=== PATIENT | female | born 1990 | race Caucasian/White ===

== ENCOUNTER 2016-06-22 09:54 | Emergency (ER) | payer OTHER ==
[~2016-06-22 09:54] MED LIST: CYCL5TAB PO; HYDR-2666 PO; NAPR500T PO; ONDA4TAB10 SL
--- NOTE | 2016-06-22 10:21 | ED.ADGEN ---
Past History Past Medical History: No Pertinent History Past Surgical History: No Surgical History Smoking: Non-smoker Alcohol Use: None Drug Use: None Adult General Chief Complaint Chief Complaint abdominal cramping HPI HPI Patient is a 26 year old female who presents with abdominal cramping. Patient is with , 18 weeks 2 days by ultrasound. Presents with abdominal cramping since yesterday evening, pain from her back and throughout her abdomen , most prominent in her lower abdomen. She reports mild nausea, no vomiting. No vaginal discharge or bleeding. She's not attempted any symptom controlling medication, she attempted to call her OB doctor, Dr. oDminique, the call was not immediately returned. She plans to deliver OPR. She denies any fevers, reports a cough, no diarrhea. She had 1 prior miscarriage at 2 months. Review of Systems Review of Systems Constitutional: Denies fever or chills [] Eyes: Denies change in visual acuity, redness, or eye pain [] HENT: Denies nasal congestion or sore throat [] Respiratory: reports cough, denies shortness of breath [] Cardiovascular: denies chest pain GI: Denies bloody stools or diarrhea [] : Denies dysuria or hematuria [] Musculoskeletal: Denies back pain or joint pain [] Integument: Denies rash or skin lesions [] Neurologic: Denies headache, focal weakness or sensory changes [] Current Medications Current Medications Current Medications Medications (Trade) Dose Ordered Sig/Tanvi Start Time Stop Time Status Last Admin Dose Admin Acetaminophen (Tylenol) 1,000 mg 1X ONCE 06/22/16 10:30 06/22/16 10:31 DC 06/22/16 10:39 1,000 MG Allergies Allergies Allergies Coded Allergies Type Severity Reaction Last Updated Verified No Known Drug Allergies 11/10/13 No Physical Exam Physical Exam Constitutional: Well developed, well nourished, no acute distress, non-toxic appearance. [] HENT: Normocephalic, atraumatic, bilateral external ears normal, oropharynx moist, no oral exudates, nose normal. [] Eyes: PERRLA, EOMI, conjunctiva normal, no discharge. [] Neck: Normal range of motion, no tenderness, supple, no stridor. [] Cardiovascular:Heart rate 90 with regular rhythm, no murmur [] Lungs & Thorax: Bilateral breath sounds clear to auscultation , no wheeze or crackles Abdomen: Bowel sounds normal, soft, diffuse lower abdomen mild ttp without guarding or peritoneal signs, no focal ttp, gravid to below umbilicus pelvic: no vaginal bleeding or significant discharge, no CMT, fingertip cervix. Skin: Warm, dry, no erythema, no rash. [] Back: No tenderness, no CVA tenderness. [] Extremities: No tenderness, no cyanosis, no clubbing, ROM intact, no edema. [] Neurologic: Alert and oriented X 3, normal motor function, normal sensory function, no focal deficits noted. [] Current Patient Data Vital Signs Vital Signs Date Time Temp Pulse Resp B/P Pulse Ox O2 Delivery O2 Flow Rate FiO2 06/22/16 10:40 96 18 113/64 99 Room Air 06/22/16 10:02 97.7 Lab Results Laboratory Tests Test 06/22/16 10:04 Urine Collection Type Unknown Urine Color Yellow Urine Clarity Clear Urine pH 7.5 Urine Specific [place] 1.015 Urine Protein Neg (NEG-TRACE) Urine Glucose (UA) Negmg/dL (NEG) Urine Ketones (Stick) Negmg/dL (NEG) Urine Blood Small (NEG) Urine Nitrite Neg (NEG) Urine Bilirubin Neg (NEG) Urine Urobilinogen Dipstick 0.2mg/dL (0.2 mg/dL) Urine Leukocyte Esterase Neg (NEG) Urine RBC 3-5/HPF (0-2) Urine WBC 0/HPF (0-4) Urine Squamous Epithelial Cells Mod/LPF Urine Bacteria Few/HPF (0-FEW) Urine Mucus Slight/LPF Urine Sperm Present/HPF EKG EKG [] Radiology/Procedures Radiology/Procedures BSUS performed by me shows both fetus, both with FHTs and moving[] Course & Med Decision Making Course & Med Decision Making Pertinent Labs and Imaging studies reviewed. (See chart for details) dipstick performed, trace blood. UA micro ordered. spec/bimanual exam performed. Pt given tylenol po. HR initially elevated, back to 90 on my exam. No UTI. Pt has sperm in ua micro, cramping could be from orgasm/intercourse. Pt's symptoms appear mild at this time and do not appear as contraction or any signs of active labor, nor does she has signs of surgical abdomen. Recommend she f/u closely with OB doctor and return if worsening symptoms or new concerning symptoms. Final Impression Final Impression abdominal pain in .[] Problems: Dragon Disclaimer Dragon Disclaimer This electronic medical record was generated, in whole or in part, using a voice recognition dictation system. ESTEPHANIE HENSON MD Jun 22, 2016 10:21
[2016-06-22] MEDS ORDERED: ACETAMINOPHEN 500 MG TABLET PO ONE (10:30)
[2016-06-22 10:34] LABS: BACTERIA,URINE FEW /HPF (0-FEW); BILIRUBIN,URINE NEG (NEG); CLARITY,URINE CLEAR; COLOR,URINE YELLOW; GLUCOSE,URINE NEG (NEG); NITRITE,URINE NEG (NEG); SPERM,URINE PRESENT /HPF; SQUAMOUS EPITHELIAL CELL,UR MOD /LPF; UROBILINOGEN,URINE 0.2 mg/dL (0.2 mg/dL); WBC,URINE 0 /HPF (0-4)
[2016-06-22 10:40] VITALS: BP 113/64
== END 2016-06-22 10:52 | disposition home or self-care (01) ==
LOC: ER 09:54
DX: O26.892 Other specified pregnancy related conditions, second trimester (principal); R10.30 Lower abdominal pain, unspecified; R11.0 Nausea; Z3A.18 18 weeks gestation of pregnancy
CPT/HCPCS: 81001; 99284-25

== ENCOUNTER 2018-08-23 16:09 | Emergency (ER) | payer OTHER ==
[~2018-08-23] VITALS: Ht 165.1 cm; Wt 83.2 kg
[2018-08-23 16:09] VITALS: BP 140/94
[~2018-08-23 16:09] MED LIST changes: +HYDR-2155 PO; -HYDR-2666 PO; +NAPR-683 PO; -NAPR500T PO
--- NOTE | 2018-08-23 16:40 | RAD ---
3 views left foot dated 08/23/2018. No comparison available. CLINICAL INDICATION: Pain after injury. Swelling. FINDINGS: 3 views left foot show normal bony alignment. No displaced fracture. No acute osseous or articular abnormality. IMPRESSION: No acute findings. Electronically signed by: Álvaro Collins MD (08/23/2018 4:37 PM) [facility] [place]
[2018-08-23] MEDS ORDERED: MELO7.5T29 PO (16:50)
--- NOTE | 2018-08-23 16:50 | PHYS DOC ---
Past History Past Medical History: No Pertinent History Past Surgical History: No Surgical History Smoking: Cigarettes Alcohol Use: Occasionally Drug Use: None Adult General Chief Complaint Chief Complaint: FOOT INJURY PAIN HPI HPI Patient is a 28-year-old female presents complaining of a left foot injury. Last night she fell down several steps after she had been drinking alcohol. She did not strike her head. No loss of consciousness. Increased pain with movement. No home pain medicine has been taken. No radiation of the discomfort. Pain is diffuse around the foot. Pain is severe in intensity.[] Review of Systems Review of Systems Constitutional: Denies fever or chills [] Eyes: Denies change in visual acuity, redness, or eye pain [] HENT: Denies nasal congestion or sore throat [] Respiratory: Denies cough or shortness of breath [] Cardiovascular: No chest pain or palpitations[] GI: Denies abdominal pain, nausea, vomiting, bloody stools or diarrhea [] : Denies dysuria or hematuria [] Musculoskeletal: Denies back pain, see history of present illness[] Integument: Denies rash or skin lesions [] Neurologic: Denies headache, focal weakness or sensory changes [] Endocrine: Denies polyuria or polydipsia [] All other systems were reviewed and found to be within normal limits, except as documented in this note. Allergies Allergies Allergies Coded Allergies Type Severity Reaction Last Updated Verified No Known Drug Allergies 11/10/13 No Physical Exam Physical Exam Constitutional: Well developed, well nourished, no acute distress, non-toxic appearance. [] HENT: Normocephalic, atraumatic, bilateral external ears normal, oropharynx moist, no oral exudates, nose normal. [] Eyes: PERRLA, EOMI, conjunctiva normal, no discharge. [] Neck: Normal range of motion, no tenderness, supple, no stridor. [] Cardiovascular:Heart rate regular rhythm, no murmur [] Lungs & Thorax: Bilateral breath sounds clear to auscultation [] Abdomen: Bowel sounds normal, soft, no tenderness, no masses, no pulsatile masses. [] Skin: Warm, dry, no erythema, no rash. Abrasions on bilateral knees and the dorsum of the left foot [] Back: No tenderness, no CVA tenderness. [] Extremities: Patient's left foot has diffuse tenderness to palpation. There is no bruising. Decreased active range of motion secondary to pain. No ankle or knee tenderness on the left. Patient is distally neurovascularly intact. The other 3 extremities show: No Tenderness, no cyanosis, no clubbing, ROM intact, no edema. [] Neurologic: Alert and oriented X 3, normal motor function, normal sensory function, no focal deficits noted. [] Psychologic: Affect normal, judgement normal, mood normal. [] EKG EKG [] Radiology/Procedures Radiology/Procedures 3 views left foot dated 08/23/2018. No comparison available. CLINICAL INDICATION: Pain after injury. Swelling. FINDINGS: 3 views left foot show normal bony alignment. No displaced fracture. No acute osseous or articular abnormality. IMPRESSION: No acute findings.[] Course & Med Decision Making Course & Med Decision Making Pertinent Labs and Imaging studies reviewed. (See chart for details) ED course: Patient arrived, was placed in bed, and tolerated exam well. She was transferred to and from radiology with any complications. After the return of the imaging findings, these were discussed with the patient voiced understanding. A postoperative shoe was placed for immobilization. She was distally neurovascularly intact after the postop shoe was placed. All questions were answered. She was discharged in improved condition. Medical decision making: There is no evidence of a fracture, dislocation, neurologic, or vascular injury to the foot. No evidence of significant ligamentous or tendinous injury.[] Dragon Disclaimer Dragon Disclaimer This electronic medical record was generated, in whole or in part, using a voice recognition dictation system. Departure Departure: Impression: Primary Impression: Contusion of left foot including toes Disposition: 01 HOME, SELF-CARE Condition: IMPROVED Referrals: PCP,ANA (PCP) Patient Instructions: Crutch Use, Foot Contusion Additional Instructions: Follow-up with your regular doctor in 2 days. If you do not have a regular doctor a list of local clinics will be provided for you. Weight-bear as tolerated with your injured foot. Take the medication as prescribed. Return to the ER if worsening pain or any other concerns. Scripts Meloxicam (MELOXICAM) 7.5 Mg Tablet 7.5 MG PO DAILY for PAIN, #20 TAB Prov: KINGHARVEY LYN 08/23/18 Problem Qualifiers Primary Impression: Contusion of left foot including toes Encounter type: initial encounter Qualified Codes: S90.32XA - Contusion of left foot, initial encounter; S90.122A - Contusion of left lesser toe(s) without damage to nail, initial encounter HARVEY MALIK DO Aug 23, 2018 16:50
[2018-08-23] MEDS ORDERED: IBUPROFEN 600 MG TABLET. PO ONE (16:51)
[2018-08-23] MEDS: IBUPROFEN 600 MG TABLET. PO ONE (16:53)
== END 2018-08-23 16:55 | disposition home or self-care (01) ==
LOC: ER 16:09
DX: S90.32XA Contusion of left foot, initial encounter (principal); S90.122A Contusion of left lesser toe(s) without damage to nail, initial encounter; F17.210 Nicotine dependence, cigarettes, uncomplicated; W10.8XXA Fall (on) (from) other stairs and steps, initial encounter; Y93.89 Activity, other specified; Y92.89 Other specified places as the place of occurrence of the external cause; Y99.8 Other external cause status
CPT/HCPCS: 73630; 99284

== ENCOUNTER 2019-02-27 10:13 | Emergency (ER) | payer SELFPAY ==
[~2019-02-27] VITALS: Ht 165.1 cm; Wt 92.5 kg
[~2019-02-27 10:13] MED LIST changes: +MELO7.5T29 PO
[2019-02-27] MEDS: IV NORMAL SALINE 1,000ML 1,000 ML IV SCH (10:27)
[2019-02-27] MEDS: HYOSCYAMINE 0.125 MG TAB.RAPDIS PO ONE (10:30)
[2019-02-27] MEDS: KETOROLAC 30 MG/ML VIAL. IVP ONE (10:30)
--- NOTE | 2019-02-27 10:35 | PHYS DOC ---
Past History Past Medical History: No Pertinent History Past Surgical History: , Tubal ligation Smoking: Cigarettes Alcohol Use: Occasionally Drug Use: Marijuana Adult General Chief Complaint Chief Complaint: ABDOMINAL PAIN HPI HPI Patient is a 28-year-old female presents with left upper quadrant abdominal pain. This has been present for the past 2 weeks. She reports a bulge in the area. She has also had nausea and vomiting during this time with the last episode of emesis 2-3 days ago. There has also been diarrhea present with the last watery stool being yesterday. No blood in the stool or emesis. No recent travel. No sick contacts. She was scheduled to see a surgeon today about a possible hernia however the surgeon was also primary special education teacher and called into emergency surgery. No significant pain relief with ibuprofen. Last dose of ibuprofen was yesterday. Pain has not migrated. Pain is moderate to severe in intensity.[] Review of Systems Review of Systems Constitutional: Denies fever or chills [] Eyes: Denies change in visual acuity, redness, or eye pain [] HENT: Denies nasal congestion or sore throat [] Respiratory: Denies cough or shortness of breath [] Cardiovascular: No chest pain or palpitations[] GI: See history of present illness[] : Denies dysuria or hematuria [] Musculoskeletal: Denies back pain or joint pain [] Integument: Denies rash or skin lesions [] Neurologic: Denies headache, focal weakness or sensory changes [] Endocrine: Denies polyuria or polydipsia [] All other systems were reviewed and found to be within normal limits, except as documented in this note. Allergies Allergies Allergies Coded Allergies Type Severity Reaction Last Updated Verified No Known Drug Allergies 11/10/13 No Physical Exam Physical Exam Constitutional: Well developed, well nourished, no acute distress, non-toxic appearance. [] HENT: Normocephalic, atraumatic, bilateral external ears normal, oropharynx moist, no oral exudates, nose normal. [] Eyes: PERRLA, EOMI, conjunctiva normal, no discharge. [] Neck: Normal range of motion, no tenderness, supple, no stridor. [] Cardiovascular:Heart rate regular rhythm, no murmur [] Lungs & Thorax: Bilateral breath sounds clear to auscultation [] Abdomen: Bowel sounds normal, soft, tenderness left upper quadrant as well as along the left lower ribs. No hepato-or splenomegaly, able to sit up and lie back without any difficulty, no masses, no pulsatile masses. [] Skin: Warm, dry, no erythema, no rash. [] Back: No tenderness, no CVA tenderness. [] Extremities: No tenderness, no cyanosis, no clubbing, ROM intact, no edema. [] Neurologic: Alert and oriented X 3, normal motor function, normal sensory function, no focal deficits noted. [] Psychologic: Affect normal, judgement normal, mood normal. [] Current Patient Data Vital Signs Vital Signs Date Time Temp Pulse Resp B/P (MAP) Pulse Ox O2 Delivery O2 Flow Rate FiO2 02/27/19 10:21 98.2 120 18 98 Room Air EKG EKG [] Radiology/Procedures Radiology/Procedures PROCEDURE: CT ABD PELV W/ORAL&IV CONTRAST CT ABD PELV W/ORAL IV CONTRAST Indication: Left upper quadrant pain, bulging Technique: Postcontrast CT imaging was performed of the abdomen and pelvis, multiplanar reconstruction images submitted. Oral contrast was also given. One or more of the following individualized dose reduction techniques were utilized for this examination: 1. Automated exposure control 2. Adjustment of the mA and/or kV according to patient size 3. Use of iterative reconstruction technique. Comparison: November 24, 2013 FINDINGS: The entirety of the abdomen and pelvis soft tissues could not be included due to patient's body habitus. There is no significant abnormality of the limited visualized lung bases. There is probable hepatic steatosis. Gallbladder is present without obvious intraluminal abnormality by CT. There is no adrenal nodularity. Both kidneys enhance, no hydronephrosis. No focal abnormality is identified of the spleen, pancreas. Bowel is not significantly dilated. There is no free air. There is trace nonorganized fluid in the dependent left pelvis. There is appearance of degree of mild wall thickening of the ascending and descending colon and also appearance of mild wall enhancement of segments of small bowel in the pelvis. There is a 1.8 cm hypodense lesion of the right adnexa, internal fluid characteristics 13 Hounsfield units. There is a focus of different density of the left adnexa about 1.4 cm, mild peripheral hyperdensity or enhancement with internal density measurements of 22 Hounsfield units. There is mild distention of the urinary bladder. Appendix cannot be clearly identified if still present. IMPRESSION: 1. There is no evidence of bowel obstruction. There is trace nonorganized dependent free fluid in the pelvis. There is appearance of degree of colonic wall thickening as well as mild small bowel enhancement which could be seen with mild enterocolitis in the appropriate clinical setting. Appendix cannot be confidently identified. 2. There is small likely cyst of the right adnexa, also small focus of density of the left adnexa which could be a somewhat complex cyst. 3. There is likely hepatic steatosis.[] Course & Med Decision Making Course & Med Decision Making Pertinent Labs and Imaging studies reviewed. (See chart for details) Emergency department course: Patient arrived, was placed in bed, and tolerated exam well. She was given medicine to help with the discomfort she was transported to and from radiology with any complications. After return of lab and imaging findings, these were discussed with the patient voiced understanding. All questions were answered. She was discharged in improved condition. Medical Decision-making: There is no evidence of obstruction, perforation, significant electrolyte abnormality, nor other surgical pathology at this time. No pancreatitis.[] Dragon Disclaimer Dragon Disclaimer This electronic medical record was generated, in whole or in part, using a voice recognition dictation system. Departure Departure: Impression: Primary Impression: Left upper quadrant abdominal pain of unknown etiology Disposition: 01 HOME, SELF-CARE Condition: IMPROVED Referrals: ANA MARTINEZ (PCP) Patient Instructions: Abdominal Pain Additional Instructions: All up with your regular doctor in 2 days. If you do not have regular doctor list of local clinics will be provided. Return to the emergency department if unable to tolerate liquids, blood in stool or emesis, or any other concerns. Scripts Metoclopramide Hcl (REGLAN) 10 Mg Tablet 10 MG PO QID for nausea and vomiting, #30 TAB Prov: HARVEY MALIK DO 02/27/19 Hyoscyamine Sulfate (LEVSIN) 0.125 Mg Tablet 0.125 MG PO QID for abdominal pain/cramping, #30 TAB Prov: HARVEY MALIK DO 02/27/19 HARVEY MALIK DO Feb 27, 2019 10:35
[2019-02-27 10:58] LABS: CALCIUM 8.4 mg/dL (8.5-10.1); CREATININE 0.7 mg/dL (0.6-1.0); GFR 98.9; POTASSIUM 3.8 mmol/L (3.5-5.1)
[2019-02-27 11:01] LABS: BASO % 0 % (0-3); EOS # 0.1 x10^3/uL (0.0-0.7); EOS % 1 % (0-3); HEMATOCRIT 44.1 % (36.0-47.0); HEMOGLOBIN 15.4 g/dL (12.0-15.5); LYMPH # 2.3 x10^3/uL (1.0-4.8); LYMPH % 21 % (24-48); MEAN CORPUSCULAR HEMOGLOBIN 42 pg (25-35); MEAN CORPUSCULAR HGB CONC 35 g/dL (31-37); MEAN CORPUSCULAR VOLUME 119 fL (79-100); MONO # 0.5 x10^3/uL (0.0-1.1); MONO % 5 % (0-9); NEUT # 7.9 x10^3uL (1.8-7.7); NEUT % 73 % (31-73); PLATELET COUNT 299 x10^3/uL (140-400); RED BLOOD COUNT 3.71 x10^6/uL (3.50-5.40); RED CELL DISTRIBUTION WIDTH 13.3 % (11.5-14.5); WHITE BLOOD COUNT 10.9 x10^3/uL (4.0-11.0)
[2019-02-27 11:04] LABS: ALBUMIN 3.2 g/dL (3.4-5.0); ALBUMIN/GLOBULIN RATIO 0.9 (1.0-1.7); TOTAL BILIRUBIN 0.4 mg/dL (0.2-1.0); TOTAL PROTEIN 6.9 g/dL (6.4-8.2)
[2019-02-27] MEDS ORDERED: IOHEXOL 240 MG/ML 50ML VIAL. ONE (11:20)
[2019-02-27] MEDS ORDERED: CONTRAST GIVEN MC PRN (11:45)
[2019-02-27 11:46] LABS: BACTERIA,URINE FEW /HPF (0-FEW); BILIRUBIN,URINE NEG (NEG); CLARITY,URINE HAZY; COLOR,URINE AMBER; GLUCOSE,URINE NEG (NEG); NITRITE,URINE NEG (NEG); RBC,URINE RARE /HPF (0-2); SQUAMOUS EPITHELIAL CELL,UR MANY /LPF; UROBILINOGEN,URINE 0.2 mg/dL (0.2 mg/dL); WBC,URINE 0 /HPF (0-4)
[2019-02-27] MEDS: IOHEXOL 300 MG/ML 75 ML VIAL. IV ONE (12:16)
[2019-02-27 12:17] LABS: PLT ESTIMATE ADEQUATE (ADEQUATE)
[2019-02-27 12:18] LABS: ANISOCYTOSIS SLIGHT; POLYCHROMASIA SLIGHT
--- NOTE | 2019-02-27 12:38 | RAD ---
CT ABD PELV W/ORAL IV CONTRAST Indication: Left upper quadrant pain, bulging Technique: Postcontrast CT imaging was performed of the abdomen and pelvis, multiplanar reconstruction images submitted. Oral contrast was also given. One or more of the following individualized dose reduction techniques were utilized for this examination: 1. Automated exposure control 2. Adjustment of the mA and/or kV according to patient size 3. Use of iterative reconstruction technique. Comparison: November 24, 2013 FINDINGS: The entirety of the abdomen and pelvis soft tissues could not be included due to patient's body habitus. There is no significant abnormality of the limited visualized lung bases. There is probable hepatic steatosis. Gallbladder is present without obvious intraluminal abnormality by CT. There is no adrenal nodularity. Both kidneys enhance, no hydronephrosis. No focal abnormality is identified of the spleen, pancreas. Bowel is not significantly dilated. There is no free air. There is trace nonorganized fluid in the dependent left pelvis. There is appearance of degree of mild wall thickening of the ascending and descending colon and also appearance of mild wall enhancement of segments of small bowel in the pelvis. There is a 1.8 cm hypodense lesion of the right adnexa, internal fluid characteristics 13 Hounsfield units. There is a focus of different density of the left adnexa about 1.4 cm, mild peripheral hyperdensity or enhancement with internal density measurements of 22 Hounsfield units. There is mild distention of the urinary bladder. Appendix cannot be clearly identified if still present. IMPRESSION: 1. There is no evidence of bowel obstruction. There is trace nonorganized dependent free fluid in the pelvis. There is appearance of degree of colonic wall thickening as well as mild small bowel enhancement which could be seen with mild enterocolitis in the appropriate clinical setting. Appendix cannot be confidently identified. 2. There is small likely cyst of the right adnexa, also small focus of density of the left adnexa which could be a somewhat complex cyst. 3. There is likely hepatic steatosis. Electronically signed by: Ethan Gary MD (02/27/2019 12:35 PM) [id number]
[2019-02-27 13:00] VITALS: BP 145/81
[2019-02-27] MEDS ORDERED: HYOS0.1264 PO (13:04)
[2019-02-27] MEDS ORDERED: METO10TA81 PO (13:04)
== END 2019-02-27 13:26 | disposition home or self-care (01) ==
LOC: ER 10:13
DX: R10.12 Left upper quadrant pain (principal); R11.2 Nausea with vomiting, unspecified; R19.7 Diarrhea, unspecified; F17.210 Nicotine dependence, cigarettes, uncomplicated; Z98.51 Tubal ligation status; Z98.890 Other specified postprocedural states
CPT/HCPCS: 36415; 74177; 80053; 81001; 81025; 83690; 85025; 96361; 96374; 99285; J1885; Q9967; J7030

== ENCOUNTER 2019-03-04 16:27 | Emergency (ER) | payer SELFPAY ==
[~2019-03-04] VITALS: Ht 165.1 cm; Wt 92.5 kg
[~2019-03-04 16:27] MED LIST changes: +HYOS0.1264 PO; +METO10TA81 PO
[2019-03-04 16:42] VITALS: BP 163/86
[2019-03-04] MEDS ORDERED: PROM118S9 PO (16:59)
[2019-03-04] MEDS ORDERED: ONDA4TAB7 PO (16:59)
--- NOTE | 2019-03-04 16:59 | PHYS DOC ---
Past History Past Medical History: No Pertinent History Past Surgical History: , Tubal ligation Smoking: Cigarettes Alcohol Use: Occasionally Drug Use: Marijuana Adult General Chief Complaint Chief Complaint: COUGH HPI HPI Patient is a 28-year-old female with nasal congestion, sore throat,, nausea, v omiting, and diarrhea for the past 3 days. Decreased appetite. Decreased smoking. No blood in the stool or emesis. Advil make symptoms a little bit better. Nothing really makes them worse. Symptoms are moderate to severe in intensity.[] Review of Systems Review of Systems Constitutional: See history of present illness[] Eyes: Denies change in visual acuity, redness, or eye pain [] HENT: See history of present illness[] Respiratory: Denies cough or shortness of breath [] Cardiovascular: No chest pain or palpitations[] GI: See history of present illness[] : Denies dysuria or hematuria [] Musculoskeletal: Denies back pain or joint pain [] Integument: Denies rash or skin lesions [] Neurologic: Denies headache, focal weakness or sensory changes [] Endocrine: Denies polyuria or polydipsia [] All other systems were reviewed and found to be within normal limits, except as documented in this note. Allergies Allergies Allergies Coded Allergies Type Severity Reaction Last Updated Verified No Known Drug Allergies 11/10/13 No Physical Exam Physical Exam Constitutional: Well developed, well nourished, no acute distress, non-toxic appearance. [] HENT: Normocephalic, atraumatic, bilateral external ears normal, oropharynx moist, no oral exudates, nose with clear rhinorrhea, posterior pharyngeal streaking is present.. [] Eyes: PERRLA, EOMI, conjunctiva normal, no discharge. [] Neck: Normal range of motion, no tenderness, supple, no stridor. [] Cardiovascular:Heart rate regular rhythm, no murmur [] Lungs & Thorax: Bilateral breath sounds clear to auscultation [] Abdomen: Bowel sounds normal, soft, no tenderness, no masses, no pulsatile masses. [] Skin: Warm, dry, no erythema, no rash. [] Back: No tenderness, no CVA tenderness. [] Extremities: No tenderness, no cyanosis, no clubbing, ROM intact, no edema. [] Neurologic: Alert and oriented X 3, normal motor function, normal sensory function, no focal deficits noted. [] Psychologic: Affect normal, judgement normal, mood normal. [] EKG EKG [] Radiology/Procedures Radiology/Procedures [] Course & Med Decision Making Course & Med Decision Making Pertinent Labs and Imaging studies reviewed. (See chart for details) Emergency department course: Patient arrived, was placed in bed, and tolerated exam well. Findings and plan were discussed with the patient who voiced understanding. All questions were answered. She was discharged in improved condition. Medical decision making: Patient with flulike illness. Since symptoms have been present for the past 3 days, checking for influenza is of no benefit since it will not change treatment. We will treat with symptomatic measures. No evidence of oral intake intolerance in the emergency department. No evidence of hypoxia. Nontoxic patient.[] Dragon Disclaimer Dragon Disclaimer This electronic medical record was generated, in whole or in part, using a voice recognition dictation system. Departure Departure: Impression: Primary Impression: Acute upper respiratory infection Additional Impression: Nausea, vomiting, and diarrhea Disposition: HOME, SELF-CARE Condition: IMPROVED Referrals: PCP,ANA (PCP) Patient Instructions: Diet for Diarrhea, Adult, Nausea and Vomiting, Upper Respiratory Infection, Adult Additional Instructions: Drink plenty of fluids, frequent small sips. No fatty foods, no milk, and no pepper for the next 48 hours. For the next 48 hours eat a diet rich in carbohydrates with foods such as bananas, rice, applesauce, and toast. Follow-up with your regular doctor in 2 days. If you do not have regular doctor list of local clinics will be provided. Take the medication as prescribed. Return to the ER if unable to tolerate liquids, increased difficulty breathing, blood in emesis or stool, or any other concerns. Scripts Ondansetron Hcl (ZOFRAN) 4 Mg Tablet 1 TAB PO Q6HRS for nausea or vomiting, #20 TAB Prov: HARVEY MALIK DO 03/04/19 D-Methorphan Hb/Prometh Hcl (PROMETHAZINE-DM SYRUP) 118 Ml Syrup 5 ML PO PRN Q4HRS for CONGESTION, #120 ML Prov: HARVEY MALIK DO 03/04/19 Problem Qualifiers HARVEY MALIK DO Mar 04, 2019 16:59
== END 2019-03-04 17:14 | disposition home or self-care (01) ==
LOC: ER 16:27
DX: J06.9 Acute upper respiratory infection, unspecified (principal); R11.2 Nausea with vomiting, unspecified; R19.7 Diarrhea, unspecified; F17.210 Nicotine dependence, cigarettes, uncomplicated; Z98.51 Tubal ligation status; Z98.890 Other specified postprocedural states
CPT/HCPCS: 99283

== ENCOUNTER 2020-04-29 08:27 | Emergency (ER) | payer SELFPAY ==
[~2020-04-29] VITALS: Ht 165.1 cm; Wt 92.5 kg
[~2020-04-29 08:27] MED LIST changes: +ONDA4TAB7 PO; +PROM118S10 PO
[2020-04-29] MEDS ORDERED: HYDROcodone/APAP 7.5/325MG 1 TAB TABLET PO ONE (09:15)
[2020-04-29 09:30] VITALS: BP 147/80
--- NOTE | 2020-04-29 09:35 | RAD ---
PROCEDURE: XR PELVIS 1-2V, XR SACRUM AND COCCYX 2+VIEWS, XR LUMBAR SPINE 2-3V STUDY DATE: 04/29/2020 CLINICAL INDICATION / HISTORY: Reason: midline back pain / Spl. Instructions: / History: . TECHNIQUE: 3 views of the lumbar spine COMPARISON: None FINDINGS: Five lumbar segments are identified. Lumbar vertebral bodies are normal in height and mildl y straightened but otherwise normal in alignment. Disc height is maintained. Pedicles are intact. IMPRESSION: Straightened lumbar spine. No fracture. Pelvis, single view INDICATION: Midline back pain COMPARISON: None. FINDINGS: The pelvic ring is intact. There is no fracture or dislocation. No significant degenerative changes a ppreciated in the hips. There is increased density in the iliac bones along the sacroiliac joint bila terally. The visualized lower lumbar spine is also unremarkable. Soft tissues show lucent centered ca lcifications in the pelvis bilaterally compatible with phleboliths. There is mild deformity of the pu bic symphysis, that could reflect mild degenerative changes. IMPRESSION: Possible minimal degenerative changes of the pubic symphysis and subtle sclerosis of the sacroiliac j oints. Correlate for any clinical markers suggesting sacroiliitis. Otherwise negative pelvis x-ray. Sacrum and coccyx 3 views INDICATION: Midline back pain COMPARISON: L-spine x-rays same day. FINDINGS: 3 views of the sacrum and coccyx show no fracture, malalignment or aggressive osseous lesions. The so ft tissues are unremarkable. Sacroiliac joints show mild sclerosis along the iliac bones but no megan nal erosion or joint space widening. IMPRESSION: 1. No fracture or malalignment in the sacrum or coccyx. 2. There is increased density to the iliac bones of the sacroiliac joint that is subtle and nonspecif ic. Correlate for any clinical markers of sacroiliitis, as may be seen with ankylosing spondylitis or other seronegative spondyloarthropathies. This can be evaluated in greater detail with MRI on an suellen ctive basis if clinically warranted. Electronically signed by: Giovani Arias MD (04/29/2020 9:33 AM) [id number]
--- NOTE | 2020-04-29 09:57 | PHYS DOC ---
Past History Past Medical History: No Pertinent History Past Surgical History: , Tubal ligation Smoking: Cigarettes Alcohol Use: None Drug Use: None General Adult EDM: Chief Complaint: BACK PAIN OR INJURY HPI: HPI: 29 yo F who denies any PMH presents the ED with complaints of low back pain and coccyx pain after patient fell on ice and landed in a seated position around 5:30am. Pain worsens when sitting, better when standing. Patient takes no routine medications. Is not any anticoagulants. Did not hit her head or lose consciousness. Is not under the influence of any alcohol or drugs. Works at [employer] - doesn't work this weekend. No prior injury to low back/pelvis. Review of Systems: Review of Systems: Constitutional: Denies fever or chills Eyes: Denies change in visual acuity HENT: Denies nasal congestion or sore throat Respiratory: Denies cough or shortness of breath Cardiovascular: Denies chest pain or edema GI: Denies abdominal pain, nausea, vomiting, bloody stools or diarrhea : Denies dysuria, urinary or bowel retention or incontinence, saddle anesthesia Musculoskeletal: Denies joint deformity or swelling Integument: Denies rash or diaphoresis Neurologic: Denies headache, midline neck pain, focal weakness or sensory changes Endocrine: Denies polyuria or polydipsia Lymphatic: Denies swollen glands Psychiatric: Denies depression or anxiety Current Medications: Current Meds: Current Medications Medications (Trade) Dose Ordered Sig/Tanvi Start Time Stop Time Status Last Admin Dose Admin Acetaminophen/ Hydrocodone Bitart (Lortab 7.5/325) 1 tab 1X ONCE 04/29/20 09:15 04/29/20 09:16 DC 04/29/20 09:20 1 TAB Allergies: Allergies: Allergies Coded Allergies Type Severity Reaction Last Updated Verified No Known Drug Allergies 04/29/20 No Physical Exam: PE: Constitutional: Well developed, well nourished, visibly in pain/antalgic gait/slow moving, HENT: Normocephalic, atraumatic, Eyes: EOMI, conjunctiva normal, no discharge. Neck: Normal range of motion, supple, Cardiovascular: S1/2 present, regular rhythm Lungs & Thorax: Speaking in full sentences, bilateral equal chest rise, no tachypnea or increased work of breathing Abdomen: soft, no tenderness, Skin: Warm, dry, no erythema, no rash. [] Back: +lumbar 4;5 midline back pain/no step off, pain over coccyx, no bruising, no CVA tenderness., normal pelvic sensation Extremities: No tenderness, no cyanosis, no lower extremity edema Neurologic: Alert and oriented X 3, normal motor function, normal sensory function, no focal deficits noted. [] Psychologic: Affect normal, judgement normal, mood normal. [] Current Patient Data: Labs: Laboratory Tests Test 04/29/20 08:53 POC Urine HCG, Qualitative hcg negative (Negative) Vital Signs: Vital Signs Date Time Temp Pulse Resp B/P (MAP) Pulse Ox O2 Delivery O2 Flow Rate FiO2 04/29/20 09:30 74 16 147/80 (102) 98 Room Air 04/29/20 08:30 98.1 EKG: EKG: [] Radiology/Procedures: Radiology/Procedures: IMAGING REPORT Signed PATIENT: ESTEPHANIE SALMON ACCOUNT: [id number] : 1990 LOCATION: ER AGE: 29 SEX: F EXAM STATUS: REG ER ORD. PHYSICIAN: GEOFFREY CHAN DO REASON: midline back pain PROCEDURE: SACRUM & COCCYX 3V PROCEDURE: XR PELVIS 1-2V, XR SACRUM AND COCCYX 2+VIEWS, XR LUMBAR SPINE 2-3V STUDY DATE: 04/29/2020 CLINICAL INDICATION / HISTORY: Reason: midline back pain / Spl. Instructions: / History: . TECHNIQUE: 3 views of the lumbar spine COMPARISON: None FINDINGS: Five lumbar segments are identified. Lumbar vertebral bodies are normal in height and mildly straightened but otherwise normal in alignment. Disc height is maintained. Pedicles are intact. IMPRESSION: Straightened lumbar spine. No fracture. Pelvis, single view INDICATION: Midline back pain COMPARISON: None. FINDINGS: The pelvic ring is intact. There is no fracture or dislocation. No significant degenerative changes appreciated in the hips. There is increased density in the iliac bones along the sacroiliac joint bilaterally. The visualized lower lumbar spine is also unremarkable. Soft tissues show lucent centered calcifications in the pelvis bilaterally compatible with phleboliths. There is mild deformity of the pubic symphysis, that could reflect mild degenerative changes. IMPRESSION: Possible minimal degenerative changes of the pubic symphysis and subtle sclerosis of the sacroiliac joints. Correlate for any clinical markers suggesting sacroiliitis. Otherwise negative pelvis x-ray. Sacrum and coccyx 3 views INDICATION: Midline back pain COMPARISON: L-spine x-rays same day. FINDINGS: 3 views of the sacrum and coccyx show no fracture, malalignment or aggressive osseous lesions. The soft tissues are unremarkable. Sacroiliac joints show mild sclerosis along the iliac bones but no marginal erosion or joint space widening. IMPRESSION: 1. No fracture or malalignment in the sacrum or coccyx. 2. There is increased density to the iliac bones of the sacroiliac joint that is subtle and nonspecific. Correlate for any clinical markers of sacroiliitis, as may be seen with ankylosing spondylitis or other seronegative spondyloarthr opathies. This can be evaluated in greater detail with MRI on an elective basis if clinically warranted. Electronically signed by: Alice Arias MD (04/29/2020 9:33 AM) [id number] DICTATED AND SIGNED BY: ALICE ARIAS MD DATE: 04/29/20 0926 CC: PCP,NO; GEOFFREY CHAN DO ~MTH0 0 Heart Score: Risk Factors: Risk Factors: DM, Current or recent (<one month) smoker, HTN, HLP, family history of CAD, obesity. Risk Scores: Score 0 - 3: 2.5% MACE over next 6 weeks - Discharge Home Score 4 - 6: 20.3% MACE over next 6 weeks - Admit for Clinical Observation Score 7 - 10: 72.7% MACE over next 6 weeks - Early Invasive Strategies Course & Med Decision Making: Course & Med Decision Making Pertinent Labs and Imaging studies reviewed. (See chart for details) Concern for coccygeal contusion, some lower lumbar pain with no radiculopathy, saddle anesthesia, paresthesias, paralysis, sensory or motor deficits. Will discharge home with strict ED return precautions were given for saddle anesthesia, urinary bowel retention or incontinence or neurologic deficits. Encouraged urgent outpatient follow-up with PMD and Ortho if pain persists. Life-threatening processes were considered but are low suspicion at this time, given history, physical exam and ED workup. Pt was educated on all prescription medications and adverse effects. All patient's questions were answered and pt was stable at time of discharge. Life/limb-threatening differential includes but is not limited to, aortic dissection/aneurysm, cauda equina syndrome, transverse myelitis, spinal cord/epidural compression syndromes, discitis, spinal stenosis, epidural abscess or hematoma, osteomyelitis, disc herniation, surgical abdomen, stable or unstable fracture, renal/ureteral colic, sepsis, meningitis, musculoskeletal i njury, traumatic injury, intraabdominal/retroperitoneal or pelvic bleeding. I spoken with the patient and her caregivers. I explained the patient's condition, diagnoses and treatment plan based on the information available to me at this time. I have answered the patient and her caregiver's questions and addressed any concerns. The patient and her caregivers have a good understa nding of patient's diagnosis, condition and treatment plan as can be expected at this point. Vital signs have been stable. Patient's condition is stable and appropriate for discharge from the emergency department. Patient will pursue further outpatient evaluation with primary care physician or other designated or consulting physician as outlined in the discharge instructions. The patient and/or caregivers are agreeable to this plan of care and follow-up instructions have been explained in detail. The patient and/or caregivers have received these instructions in written form and have expressed an understanding of the discharge instructions. The patient and/or caregivers are aware that any significant change of condition or worsening of symptoms should prompt immediate return to this or the closest emergency department or call to 1. Bret Disclaimer: Bret Disclaimer: This electronic medical record was generated, in whole or in part, using a voice recognition dictation system. Departure Departure: Impression: Primary Impression: Back pain Additional Impression: Coccyx contusion Disposition: 01 DC HOME SELF CARE/HOMELESS Condition: STABLE Referrals: PCP,NO (PCP) FOLLOW UP WITH FAMILY MEDICINE: [facility], [facility] [address] [place] [address], Patient Instructions: Back Pain, Adult, Tailbone Injury Additional Instructions: FOLLOW UP WITH ORTHOPEDICS: [facility] [address] [facility], [address] [place] [address] EMERGENCY DEPARTMENT GENERAL DISCHARGE INSTRUCTIONS Thank you for coming to [facility] (ED) today and trusting us with you care. We trust that you had a positivie experience in our Emergency Department. If you wish to speak to the department management, you may call the director at [phone]. YOUR FOLLOW UP INSTRUCTIONS ARE FOLLOWS: 1. Do you have a private Doctor? If you do not have a private doctor, please ask for a resource list of physicians or clinics that may be able to assist you with follow up care. 2. The Emergency Physician has interpreted your x-rays. The X-Ray specialist will also review them. If there is a change in the findings, you will be notified in 48 hours when at all possible. 3. A lab test or culture has been done, your results will be reviewed and you will be notified if you need a change in treatment. ADDITIONAL INSTRUCTIONS AND INFORMATION: 1. Your care today has been supervised by a physician who is specially trained in emergency care. Many problems require more than one evaluation for a complete diagnosis and treatment. We recommend that you schedule your follow up appointment as recommended to ensure complete treatment of you illness or injury. If you are unable to obtain follow up care and continue to have a problem, or if your condition worsens, we recommend that you return to the ED. 2. We are not able to safely determine your condition over the phone nor are we able to give sound medical advice over the phone. For these safety reasons, if you call for medical advice we will ask you to come to the ED for further evaluation. 3. If you have any questions regarding these discharge instructions please call the ED at [phone]. SAFETY INFORMATION: In the interest of safety, wellness, and injury prevention; we encourage you to wear your sealbelt, if you smoke; quite smoking, and we encourage family to use a protective helmet for bicycling and other sporting events that present an increased risk for head injury. IF YOUR SYMPTOMS WORSEN OR NEW SYMPTOMS DEVELOP, OR YOU HAVE CONCERNS ABOUT YOUR CONDITION; OR IF YOUR CONDITION WORSENS WHILE YOU ARE WAITING FOR YOUR FOLLOW UP APPOINTMENT; EITHER CONTACT YOUR PRIMARY CARE DOCTOR, THE PHYSICIAN WHOSE NAME AND NUMBER YOU WERE GIVEN, OR RETURN TO THE ED IMMEDIATELY. Scripts Lidocaine/Menthol (LIDOPATCH) 1 Each Adh..patch 1 HOMERO TP DAILY for pain for 5 Days, #5 EACH 0 Refills 5% patch please Apply 1 patch daily for 12 hours, remove patch for another 12 hours, may repeat for a total of 5 days Prov: GEOFFREY CHAN DO 04/29/20 Cyclobenzaprine Hcl (CYCLOBENZAPRINE HCL) 10 Mg Tablet 1 TAB PO TID PRN for MUSCLE SPASMS, #15 TAB Prov: GEOFFREY CHAN DO 04/29/20 Ibuprofen (IBUPROFEN) 600 Mg Tablet 600 MG PO Q6HRS for headache, #20 TAB Prov: GEOFFREY CHAN DO 04/29/20 GEOFFREY CHAN DO Apr 29, 2020 09:57
[2020-04-29] MEDS ORDERED: LIDO1ADH TP (10:18)
[2020-04-29] MEDS ORDERED: CYCL-331 PO (10:18)
[2020-04-29] MEDS ORDERED: IBUP600T16 PO (10:18)
== END 2020-04-29 10:28 | disposition home or self-care (01) ==
LOC: ER 08:27
DX: S30.0XXA Contusion of lower back and pelvis, initial encounter (principal); F17.210 Nicotine dependence, cigarettes, uncomplicated; W00.0XXA Fall on same level due to ice and snow, initial encounter; Y93.89 Activity, other specified; Y92.89 Other specified places as the place of occurrence of the external cause; Y99.8 Other external cause status
CPT/HCPCS: 72100; 72170; 72220; 81025; 99284

== ENCOUNTER 2020-11-29 19:11 | Emergency (ER) | payer SELFPAY ==
[~2020-11-29] VITALS: Ht 165.1 cm; Wt 85.0 kg
[~2020-11-29 19:11] MED LIST changes: +CYCL-331 PO; +IBUP600T16 PO; +LIDO1ADH TP
[2020-11-29] MEDS ORDERED: DEXAMETHASONE 4 MG TABLET PO ONE (19:30)
--- NOTE | 2020-11-29 19:39 | PHYS DOC ---
Past History Past Medical History: No Pertinent History Past Surgical History: , Tubal ligation Smoking: Cigarettes Alcohol Use: Rarely Drug Use: None General Adult EDM: Chief Complaint: COUGH HPI: HPI: 30-year-old female presents with 2-day history of nonproductive cough, headache, shortness of air, and loss of smell and taste. Patient denies known exposure to COVID-19. Patient does report she is not vaccinated for COVID-19. Patient does report continued smoking. Denies trauma. Denies leg swelling or calf tenderness. Denies . Review of Systems: Review of Systems: Constitutional: Reports subjective fever/chills and generalized malaise Eyes: Denies redness or eye pain HENT: Reports nasal congestion; denies sore throat Respiratory: Reports cough and shortness of breath Cardiovascular: Denies chest pain or palpitations GI: Denies abdominal pain, nausea, or vomiting : Denies dysuria or hematuria Musculoskeletal: Denies back pain or joint pain Integument: Denies rash or skin lesions Neurologic: Reports headache; denies focal weakness or sensory changes Complete systems were reviewed and found to be within normal limits, except as documented in this note. Current Medications: Current Meds: Current Medications Medications (Trade) Dose Ordered Sig/Tanvi Start Time Stop Time Status Last Admin Dose Admin Dexamethasone (Decadron) 10 mg 1X ONCE 11/29/20 19:30 11/29/20 19:31 DC Allergies: Allergies: Allergies Coded Allergies Type Severity Reaction Last Updated Verified No Known Drug Allergies 04/29/20 No Physical Exam: PE: Constitutional: Well developed, well nourished, no acute distress, non-toxic appearance HENT: Normocephalic, atraumatic, pharynx clear, TMs clear bilaterally, nasal congestion and enlarged turbinates noted Eyes: Conjunctiva normal, no discharge Neck: Normal range of motion, supple, no meningeal signs Lungs & Thorax: No respiratory distress, equal chest rise and fall Skin: Warm, dry, no erythema, no rash Extremities: No tenderness, ROM intact, no edema Neurologic: Alert and oriented X 3,no focal deficits noted Psychologic: Affect normal, judgment normal Current Patient Data: Vital Signs: Vital Signs Date Time Temp Pulse Resp B/P (MAP) Pulse Ox O2 Delivery O2 Flow Rate FiO2 11/29/20 19:27 99.0 113 18 150/84 (106) 98 Room Air EKG: EKG: [] Radiology/Procedures: Radiology/Procedures: PROCEDURE: CHEST AP ONLY Exam: Chest one view INDICATION: Cough, Covid TECHNIQUE: Frontal view of the chest Comparisons: None FINDINGS: The cardiomediastinal silhouette and pulmonary vessels are within normal limits. The lung and pleural spaces are clear. IMPRESSION: No acute cardiopulmonary process. Electronically signed by: Karrie Proctor MD (11/29/2020 7:41 PM) [facility] Heart Score: C/O Chest Pain: N/A Course & Med Decision Making: Course & Med Decision Making Pertinent Labs and Imaging studies reviewed. (See chart for details) Patient presents with HPI and physical exam concerning for viral syndrome. Cannot exclude COVID-19. Patient has not received COVID-19 vaccination. Covid precautions in place. COVID-19 testing pending. Symptomatic treatment provided. Chest x-ray without acute finding. Patient stable for discharge with outpatient follow-up with PCP. Discussed findings and plan with patient, who acknowledges understanding and agreement. COVID-19 CRITERIA: The patient was evaluated during the global COVID-19 pandemic, and that diagnosis was suspected/considered upon their initial presentation. Their evaluation, treatment and testing was consistent with current guidelines for patients who present with complaints or symptoms that may be related to COVID-19. Bret Disclaimer: Bret Disclaimer: This electronic medical record was generated, in whole or in part, using a voice recognition dictation system. Departure Departure: Impression: Primary Impression: Bronchitis Additional Impression: Suspected 2019 novel coronavirus infection Disposition: HOME / SELF CARE / HOMELESS Condition: STABLE Referrals: PCP,NO (PCP) Patient Instructions: Acute Bronchitis, Iolx-dr-Broi, Viral Syndrome Additional Instructions: You have been tested for or diagnosed with COVID-19. It is an infection caused by a new type of coronavirus. COVID-19 will cause cold-like or mild flu symptoms in most. It can cause more severe symptoms like problems breathing in some. There is no treatment for COVID-19. The body will clear the infection over time. Self-care will help to ease discomfort. Steps to Take: Self-Care Rest as needed. Healthy habits may help you feel better. Steps include: Choose healthy foods including fruits and vegetables. Drink water throughout the day. Get plenty of sleep each night. If you smoke, try to quit. It may ease breathing. Avoid alcohol. Keep Others Healthy The virus can spread to others. Droplets are released every time you sneeze or cough. The droplets can get into the mouth, nose, or eyes of people near you and lead to infection. To lower the chances of spreading COVID-19 to others: Stay at home until your doctor has said it is safe to leave. If you tested positive this will mean staying isolated until both of the following are true: At least 7 days have passed since the start of illness. You are free of fever for at least 72 hours without the use of medicine. During this time: - Avoid public areas, events, or transportation. Do not return to work or school until your doctor has said it is safe to do so. - Call ahead if you need to go to a medical center. Let them know you may have COVID-19. It will help them guide you where to go. They may also ask you to wear a facemask when you come to the office. - If you call for emergency medical services, let them know you may have COVID- 19. While at home: - Try to avoid close contact with others. Stay about 6 feet away. - If possible, spend most of your time in a separate room from others. - Use a face mask if you will be in close contact with others such as sharing a room or vehicle. - Have someone wipe down common surfaces in the home. Use household manufacturing clerk every day on areas like doorknobs, counters, or sinks. - Cough or sneeze into a tissue. Throw the tissue away right after use. If a tissue is not available, cough or sneeze into your elbow. - Wash your hands often. Wash them after sneezing or coughing. Use soap and water and wash for at least 20 seconds. Alcohol based hand machine fur cleaner can be used if soap and water is not available. - Do not prepare food for others. Avoid sharing personal items like forks, spoons, or toothbrushes. - Avoid close contact with pets while you are sick. There is no evidence of the virus passing to pets. This is a safety step until more is known about this virus. Isolation can be frustrating. Social interaction can help. Keep in touch with friends and family through phone and tech options. You can still interact with others in your home, just keep a safe distance of about 6 feet. Follow-up: Your doctors office will check in with you to see if there are any changes in your health. You may be asked to keep track of symptoms to share with them. They will also let you know when you are clear to be in public again. Problems to Look Out For: Contact your doctor if your recovery is not going as you expect. Get emergency care if you have problems such as: - Trouble breathing - Nonstop chest pain or pressure - Changes in awareness, confusion, or problems waking - Lips or face have bluish color - Worsening of symptoms If you think you have an emergency, call for emergency medical services right away. As taken from [facility] Benzonatate (TESSALON PERLE) 100 Mg Capsule 100 MG PO TID PRN PRN for COUGH, #20 CAP Prov: MINESH HERRERA DO 11/29/20 Prednisone (PREDNISONE) 20 Mg Tablet 1 TAB PO DAILY for Bronchitis, #8 TAB Start this prescription tomorrow, Saturday11/30/20 Prov: MINESH HERRERA DO 11/29/20 Albuterol Sulfate (PROAIR HFA INHALER) 8.5 Gm Hfa.aer.ad 2 PUFF IH PRN Q4-6HRS PRN for SHORTNESS OF BREATH, #1 INHALER 0 Refills Prov: MINESH HERRERA DO 11/29/20 COVID-19 Assessment COVID-19 Patient Risks: Age 65 or older: No Sign of co-morbidity: No Exp to person + for COVID: No Exp to PUI: No Travel from affected area: No Lower respiratory symptoms: Yes Fever: Yes Other: Yes PPE Use: Full PPE with N95 mask or PAPR: Yes MINESH HERRERA DO Nov 29, 2020 19:39
--- NOTE | 2020-11-29 19:43 | RAD ---
Exam: Chest one view INDICATION: Cough, Covid TECHNIQUE: Frontal view of the chest Comparisons: None FINDINGS: The cardiomediastinal silhouette and pulmonary vessels are within normal limits. The lung and pleural spaces are clear. IMPRESSION: No acute cardiopulmonary process. Electronically signed by: Karrie Proctor MD (11/29/2020 7:41 PM) [facility]
[2020-11-29] MEDS ORDERED: PRED20TA PO (19:49)
[2020-11-29] MEDS ORDERED: ALBU2.5V8 IH (19:49)
[2020-11-29] MEDS ORDERED: BENZ100C PO (19:50)
[2020-11-29 19:58] VITALS: BP 136/83
== END 2020-11-29 19:57 | disposition home or self-care (01) ==
LOC: ER 19:11
DX: J40 Bronchitis, not specified as acute or chronic (principal); F17.210 Nicotine dependence, cigarettes, uncomplicated; Z20.822 Contact with and (suspected) exposure to COVID-19
CPT/HCPCS: 71045; 99284; C9803; J8540; U0003